=== PATIENT | female | born 1935 | race Caucasian/White ===

== ENCOUNTER 2025-06-03 16:19 | Inpatient (IN) | payer OTHER, BC ==
[2025-06-03] MEDS ORDERED: FAMOTIDINE 20 MG/50 ML IVPB 20 MG/50 ML MG IVPB ONE (17:23)
[2025-06-03 17:35] LABS: ABSOLUTE IMMATURE GRANULOCYTES 0.06 x10^3/uL (0.0-0.031); BASOPHILS # 0.07 x10^3/uL (0.01-0.08); EOSINOPHIL % 1.8 % (0.7-5.8); EOSINOPHILS # 0.18 x10^3/uL (0.04-0.36); MCHC 31.3 g/dl (32.2-35.5); MEAN CELL VOLUME 95.1 fl (79.4-94.8); MEAN PLT VOLUME 10.8 fl (9.4-12.3); MONOCYTE # 1.05 x10^3/uL (0.24-0.86); MONOCYTE % 10.5 % (4.7-12.5); RDW 15.7 % (12.5-17.0)
[2025-06-03] MEDS: FAMOTIDINE 20 MG/50 ML IVPB 20 MG/50 ML MG IVPB ONE (17:41)
[2025-06-03 17:55] LABS: CO2 24.0 mmol/L (21-32); GLUCOSE,RANDOM 88.0 mg/dL (74-106)
[2025-06-03 17:58] LABS: CREATININE 0.8 mg/dL (0.55-1.3); SGOT/AST 38.0 U/L (15-37); SGPT/ALT 26.0 U/L (13-61)
[2025-06-03 17:59] LABS: TOT PROT 6.1 g/dl (6.4-8.2)
[2025-06-03 18:00] LABS: ALK PHOS 100.0 U/L (45-117)
[2025-06-03 18:12] LABS: URINE APPEARANCE CLEAR; URINE BILIRUBIN NEGATIVE (NEGATIVE); URINE COLOR YELLOW; URINE GLUCOSE (UA) NEGATIVE (NEGATIVE); URINE KETONE NEGATIVE (NEGATIVE); URINE LEUK ESTERASE NEGATIVE (NEGATIVE); URINE NITRITE NEGATIVE (NEGATIVE); URINE PROTEIN NEGATIVE (NEGATIVE); URINE UROBILINOGEN 1.0 mg/dL (0.2-1.0)
[2025-06-03] MEDS: SODIUM CHLORIDE 0.9% 500 ML INFUS.BAG IV ONE (20:01)
[2025-06-03 20:25] LABS: INR 1.3 (0.83-1.09); PROTHROMBIN TIME (PATIENT) 14.3 SEC (9.7-13.0)
[2025-06-03 20:27] LABS: ACTIVATED PTT 35.4 SECONDS (25.2-36.5)
[2025-06-03] MEDS: FUROSEMIDE 100 MG/10 ML INJECTABLE VIAL IVPB ONE (20:49)
[2025-06-03] MEDS ORDERED: FUROSEMIDE 40 MG/4 ML INJECTABLE VIAL ONE (20:52)
[2025-06-03] MEDS ORDERED: ACETAMINOPHEN INJECTION 100 ML ONE (20:56)
[2025-06-03] MEDS: ACETAMINOPHEN 1000 MG/100 ML BAG IVPB ONE (21:05)
[2025-06-03] MEDS: FUROSEMIDE 40 MG/4 ML INJECTABLE VIAL IVPUSH ONE (21:06)
[2025-06-03 23:03] LABS: CO2 28.0 mmol/L (21-32); GLUCOSE,RANDOM 88.0 mg/dL (74-106)
[2025-06-03 23:06] LABS: SGOT/AST 22.0 U/L (15-37); SGPT/ALT 22.0 U/L (13-61)
[2025-06-03 23:07] LABS: CREATININE 0.8 mg/dL (0.55-1.3)
[2025-06-03 23:08] LABS: TOT PROT 5.9 g/dl (6.4-8.2)
[2025-06-03 23:11] LABS: ALK PHOS 98.0 U/L (45-117); N-TERMINAL BNP 3229.6 pg/ml (5-450)
[2025-06-04 08:06] LABS: CO2 28.0 mmol/L (21-32); CREATININE 0.8 mg/dL (0.55-1.3); GLUCOSE,RANDOM 77.0 mg/dL (74-106)
[2025-06-04 08:39] LABS: ABSOLUTE IMMATURE GRANULOCYTES 0.06 x10^3/uL (0.0-0.031); BASOPHILS # 0.08 x10^3/uL (0.01-0.08); EOSINOPHIL % 1.5 % (0.7-5.8); EOSINOPHILS # 0.15 x10^3/uL (0.04-0.36); MCHC 31.3 g/dl (32.2-35.5); MEAN CELL VOLUME 95.7 fl (79.4-94.8); MEAN PLT VOLUME 11.5 fl (9.4-12.3); MONOCYTE # 0.97 x10^3/uL (0.24-0.86); MONOCYTE % 9.7 % (4.7-12.5); RDW 15.2 % (12.5-17.0)
[2025-06-04] MEDS ORDERED: BISACODYL 10 MG SUPP.RECT PR PRN (14:54)
[2025-06-04] MEDS: HALOPERIDOL LACTATE 5 MG/ML IM ONE (16:30)
[2025-06-04 16:35] VITALS: BMI 22.0
[2025-06-04] MEDS: MELATONIN 1 MG TABLET PO SCH (21:33)
[2025-06-04] MEDS: APIXABAN 5 MG TABLET PO SCH (21:33)
[2025-06-04] MEDS: SERTRALINE HCL 50 MG TABLET (FP) PO SCH (21:33)
[2025-06-05] MEDS: FAMOTIDINE 20 MG TABLET PO SCH (09:37)
[2025-06-05] MEDS: DIGOXIN 0.125 MG TABLET PO SCH (09:37)
[2025-06-05] MEDS: FUROSEMIDE 20 MG TABLET (FP) PO SCH (09:37)
[2025-06-06] MEDS: HALOPERIDOL LACTATE 5 MG/ML IM ONE (17:00)
[2025-06-07] MEDS: APIXABAN 2.5 MG TABLET PO SCH (10:48)
[2025-06-07 14:15] VITALS: BP 124/84; PULSE 65; RESP 18; TEMP 98.4
== END 2025-06-07 17:33 | DRG 313 ==
LOC: JER 16:19 → JERBED 19:13 → J4W 06-04 15:00 → OBSVTOIN 06-05 11:08
PROVIDERS: ADMIT Internal Medicine; ATTEND Internal Medicine
DX: R07.9 Chest pain, unspecified (principal); F03.90 Unspecified dementia, unspecified severity, without behavioral disturbance, psychotic disturbance, mood disturbance, and anxiety; F32.9 Major depressive disorder, single episode, unspecified; E11.9 Type 2 diabetes mellitus without complications; I11.0 Hypertensive heart disease with heart failure; I50.9 Heart failure, unspecified; I25.2 Old myocardial infarction
CPT/HCPCS: 36415; 71045-TC-FY; 71046-TC-FY; 80048; 80053; 80162; 81003; 82962; 83690; 83880; 84484; 85025; 85610; 85730; 86850; 86900; 86901; 93005; 93010; 93306-TC; 99285-25; G0378

== ENCOUNTER 2025-06-08 22:18 | Emergency (ER) | payer OTHER, BC ==
[2025-06-08 22:35] VITALS: TEMP 97.9; BMI 20.3
[2025-06-08] MEDS ORDERED: ACETAMINOPHEN INJECTION 100 ML ONE (23:42)
[2025-06-08 23:50] LABS: ABSOLUTE IMMATURE GRANULOCYTES 0.09 x10^3/uL (0.0-0.031); BASOPHILS # 0.08 x10^3/uL (0.01-0.08); EOSINOPHIL % 1.3 % (0.7-5.8); EOSINOPHILS # 0.15 x10^3/uL (0.04-0.36); MCHC 32.0 g/dl (32.2-35.5); MEAN CELL VOLUME 94.3 fl (79.4-94.8); MEAN PLT VOLUME 11.3 fl (9.4-12.3); MONOCYTE # 1.34 x10^3/uL (0.24-0.86); MONOCYTE % 11.3 % (4.7-12.5); RDW 14.9 % (12.5-17.0)
[2025-06-08] MEDS: SODIUM CHLORIDE 0.9% 500 ML INFUS.BAG IV ONE (23:50)
[2025-06-08] MEDS: ACETAMINOPHEN 1000 MG/100 ML BAG IVPB ONE (23:51)
[2025-06-09] LABS: INR 1.4 (0.83-1.09); PROTHROMBIN TIME (PATIENT) 15.3 SEC (9.7-13.0)
[2025-06-09 00:03] LABS: ACTIVATED PTT 31.5 SECONDS (25.2-36.5)
[2025-06-09 00:17] LABS: CO2 28.0 mmol/L (21-32); GLUCOSE,RANDOM 136.0 mg/dL (74-106)
[2025-06-09 00:19] LABS: SGPT/ALT 21.0 U/L (13-61)
[2025-06-09 00:20] LABS: CREATININE 0.9 mg/dL (0.55-1.3); SGOT/AST 27.0 U/L (15-37)
[2025-06-09 00:21] LABS: TOT PROT 6.0 g/dl (6.4-8.2)
[2025-06-09 00:23] LABS: ALK PHOS 89.0 U/L (45-117)
[2025-06-09 01:06] LABS: HCV DIAGNOSTIC IN-HOUSE W/RFLX NON-REACTIVE (NONREACTIVE)
[2025-06-09 01:07] LABS: HIV INTERPRETATION NEGATIVE (NEGATIVE)
[2025-06-09 04:31] VITALS: BP 110/57; PULSE 91; RESP 16
== END 2025-06-09 04:48 | disposition home or self-care (01) ==
LOC: JER 22:18
PROC: 3E033NZ Introduction of Analgesics, Hypnotics, Sedatives into Peripheral Vein, Percutaneous Approach (ICD-10-PCS; principal; 2025-06-08)
DX: S00.03XA Contusion of scalp, initial encounter (principal); J81.0 Acute pulmonary edema; D72.829 Elevated white blood cell count, unspecified; W05.0XXA Fall from non-moving wheelchair, initial encounter
CPT/HCPCS: 36415; 70450-TC; 71045-TC-FY; 72125-TC; 72170-TC-FY; 80053; 83735; 84484; 85025; 85610; 85730; 86803; 87389; 93005; 93010; 96374; 99285-25